=== PATIENT | male | born 1975 | race Caucasian/White ===

== ENCOUNTER 2017-04-20 09:31 | Emergency (ER) | payer OTHER ==
[2017-04-20 10:11] VITALS: RESP 20; O2SAT 99
--- NOTE | 2017-04-20 10:38 | C.PDOC ---
History Of Present Illness 42 y/o male with no PMHx presents to the ER complaining of cough and congestion for 2 weeks. Denies any fever or chills. Patients is now sick with similar symptoms. He reports having a dry, non-productive cough, and a lot of sinus congestion but states no phlegm is being produced. Time Seen by Provider: 04/20/17 09:38 Chief Complaint (Nursing): ENT Problem History Per: Patient History/Exam Limitations: no limitations Onset/Duration Of Symptoms: Days (x 2 weeks) Current Symptoms Are (Timing): Still Present Past Medical History Reviewed: Historical Data, Nursing Documentation, Vital Signs Vital Signs: Last Vital Signs Temp 98.1 F 04/20/17 10:53 Pulse 83 04/20/17 10:53 Resp 20 04/20/17 10:53 BP 119/68 04/20/17 10:53 Pulse Ox 99 04/20/17 11:41 - Medical History PMH: No Chronic Diseases Surgical History: No Surg Hx Family History: States: Unknown Family Hx - Social History Hx Alcohol Use: Yes Hx Substance Use: No - Immunization History Hx Tetanus Toxoid Vaccination: No Hx Influenza Vaccination: No Hx Pneumococcal Vaccination: No Review Of Systems Except As Marked, All Systems Reviewed And Found Negative. Constitutional: Negative for: Fever Respiratory: Negative for: Shortness of Breath Physical Exam - Physical Exam Additional Physical Exam Comments: Constitutional: No acute distress. Head: Normocephalic. Atraumatic. No sinus tenderness. Eyes: PERRL. ENT: Moist mucous membranes. Neck: Supple. Cardiovascular: Regular rate. Radial pulse 2+ bilaterally. Chest: No tenderness. Respiratory: Clear to auscultation bilaterally. GI: Soft. Nontender. Nondistended. Back: No CVA tenderness. Musculoskeletal: No tenderness or swelling of extremities. Skin: No rash. Neurologic: Alert, no focal deficit. ED Course And Treatment O2 Sat by Pulse Oximetry: 99 (RA) Pulse Ox Interpretation: Normal Medical Decision Making Medical Decision Making: Chest X-Ray negative. Disposition - Disposition Disposition: HOME/ ROUTINE Disposition Time: 11:39 Condition: GOOD Prescriptions: Guaifenesin [Mucinex] 1,200 mg PO BID #[id number] Instructions: Upper Respiratory Infection (ED) Forms: [employer] (Niuean) - Clinical Impression Clinical Impression: Upper respiratory infection - Scribe Statement The provider has reviewed the documentation as recorded by the Scribe (Sarah Gao) Provider Attestation: All medical record entries made by the Scribe were at my direction and personally dictated by me. I have reviewed the chart and agree that the record accurately reflects my personal performance of the history, physical exam, medical decision making, and the department course for this patient. I have also personally directed, reviewed, and agree with the discharge instructions and disposition.
--- NOTE | 2017-04-20 10:45 | RAD ---
Chest x-ray two views History: Cough. Comparison: None available. Findings: No focal infiltrate or effusion. Heart size within normal limits. Impression: No focal infiltrate or effusion.
[2017-04-20 10:53] VITALS: BP 119/68; PULSE 83; TEMP 98.1
== END 2017-04-20 11:47 | disposition home or self-care (01) ==
LOC: C.ER 09:31
DX: J06.9 Acute upper respiratory infection, unspecified (principal)